=== PATIENT | female | born 1950 | race Caucasian/White ===

== ENCOUNTER 2017-04-28 19:21 | Emergency (ER) | payer MEDICARE, OTHER ==
[~2017-04-28] VITALS: Ht 160 cm; Wt 65.8 kg
[~2017-04-28 19:21] MED LIST: ACET500 PO; ALBIPROI INH; ALBU.083IS IH; ALBU3IS INH; ALBU90OI INH; ALBU90OI6 INH; AMOCLA875 PO; ASPI81CH PO; ASPI81EC; ASPI81EC PO; ATOR10; AZIT250 PO; Acetaminophen325 M1 PO; Augmentin 875-1 EACH PO; BUDE6HFA INH; BUME1 PO; BUME2 PO; BUPR100; BUPR150T2; CIPR500 PO; CRUTCH3 USE; Coumadin5 MG PO; DIGO.125 PO; DILT180 PO; DIPATR PO; DOCCAL240 PO; DOCU100; DOXY100 PO; DULO60 PO; Diflucan100 MG PO; FAMO40 PO; FERR325 PO; FLONASE ALLERG9.9 ML; FURO20; FURO20 PO; FURO40 PO; FURO80 PO; Flagyl500 MG PO; GABA300 PO; GUAI200 PO; HYDACE10B PO; HYDACE5; HYDACE5 PO; HYDACE5325; HYDACE5325 PO; HYDR1TAB94 PO; Humulin N100 UNIT/1 SC; INS70/30PN; INSDET100; INSDET100 SC; INSDET100 SQ; INSUASPI; INSUASPI SC; K-Dur20 MEQ PO; LACT10SY PO; LAVAP17G PO; LEVFLO500 PO; LIDO5TP TOP; LIPITOR; LISHYD2025; LISI5 PO; LOSA25 PO; LOSA50 PO; LOVA20; Lopressor 25 mg25 MG PO; MAGCHL64ER PO; MAGOXI400 PO; METF500 PO; METF500C PO; METO2.5 PO; METO50 PO; METO50ER PO; METR500 PO; NITR.4SL SL; NYST100P TOP; NYST100TC TOP; NYST100TO TOP; Neurontin 100100 MG PO; Novolog Fl100 UNIT/1 SC; Nystatin15 GM TP; OLME20; OXYACE10; OXYACE5T PO; OXYC5 PO; PANT40 PO; POTCHL10ER PO; POTCHL20ER PO; PRED10 PO; PRED20 PO; PROCODE120 PO; PRODEXEL PO; PROM25 PO; ROSI4; RXHYDACE PO; SENNA; SIMV10 PO; SPIR25 PO; Simvastatin20 MG PO; TAMS.4ER PO; TRAM50 PO; Ventolin Soln3 ML INH; Ventolin/Prove6.7 GM INH; WARF5 PO; WARF7.5 PO; XARELTO15 MG PO; XARELTO20 MG PO; Zofran Odt4 MG PO; [UNRECOGNIZED DRUG - OTHER]
[2017-04-28 19:40] LABS: Source, Urine Clean Catch
[2017-04-28 19:49] LABS: Appearance, Urine Turbid (Clear); Bilirubin, Urine Neg (Neg); Blood, Urine 3+ (Neg); Color, Urine Yellow (P-Yellow); Glucose Qualitative, Urine 2+ (Neg); Ketones, Urine Neg (Neg); Leukocyte Esterase, Urine 2+ (Neg); Nitrite, Urine Neg (Neg); Protein, Urine 3+ (Neg); Specific Gravity, Urine 1.015 (1.003-1.022); Urobilinogen, Urine NORM (Normal)
[2017-04-28 20:10] LABS: BASOPHILS ABSOLUTE AUTO 0.02 K/mm3 (0.00-0.23); BASOPHILS PERCENT AUTO 0 % (0-2); EOSINOPHILS ABSOLUTE AUTO 0.01 K/mm3 (0.00-0.68); EOSINOPHILS PERCENT AUTO 0 % (0-6); Hematocrit 43.4 % (33.0-51.0); Hemoglobin 14.9 g/dL (11.5-16.0); IMMATURE GRAN ABSOLUTE AUTO 0.01 K/mm3 (0.00-0.10); IMMATURE GRAN PERCENT AUTO 0 % (0-1); LYMPHOCYTES ABSOLUTE AUTO 0.41 K/mm3 (0.84-5.20); LYMPHOCYTES PERCENT AUTO 9 % (21-46); MONOCYTES ABSOLUTE AUTO 0.51 K/mm3 (0.16-1.47); MONOCYTES PERCENT AUTO 11 % (4-13); Mean Corpuscular HGB 29.9 pg (26.0-34.0); Mean Corpuscular HGB Conc 34.3 g/dL (31.5-36.5); Mean Corpuscular Volume 87 fL (80-100); Mean Platelet Volume 9.5 fL (9.1-12.4); NEUTROPHILS ABSOLUTE AUTO 3.78 K/mm3 (1.96-9.15); NEUTROPHILS PERCENT AUTO 80 % (41-73); Platelet Count 183 K/mm3 (150-400); RDW Coefficient Variation 14.1 % (11.7-14.2); RDW Standard Deviation 44.8 fL (35.1-46.3); Red Blood Cell Count 4.99 M/mm3 (3.80-5.20); White Blood Cell Count 4.74 K/mm3 (4.00-11.30)
[2017-04-28 20:16] LABS: Bacteria Many /hpf; Squamous Epithelial Cells Mod /hpf (Few)
[2017-04-28 20:29] LABS: Troponin I 0.117 ng/mL (0.000-0.040)
[2017-04-28 20:32] LABS: Albumin, Blood 3.4 g/dL (3.4-5.0); Albumin/Globulin Ratio 0.9 (0.8-1.8); Bilirubin, Total 0.7 mg/dL (0.1-1.0); Bun/Creatinine Ratio 16.2 (12.0-20.0); Calcium, Blood 9.1 mg/dL (8.5-10.1); Creatinine, Blood 1.11 mg/dL (0.40-1.00); Globulin, Blood 3.9 g/dL (2.2-4.0); Potassium, Blood 4.2 mmol/L (3.5-5.5); Total Protein, Blood 7.3 g/dL (6.4-8.2)
[2017-04-28] MEDS ORDERED: CEPH500 PO (23:09)
== END 2017-04-28 23:45 | disposition home or self-care (01) ==
LOC: ER 19:21
PROVIDERS: Emergency Medicine
DX: N39.0 Urinary tract infection, site not specified (principal); E11.65 Type 2 diabetes mellitus with hyperglycemia; J45.909 Unspecified asthma, uncomplicated; I11.0 Hypertensive heart disease with heart failure; I50.9 Heart failure, unspecified; E11.40 Type 2 diabetes mellitus with diabetic neuropathy, unspecified; I48.91 Unspecified atrial fibrillation; Z88.5 Allergy status to narcotic agent; Z88.8 Allergy status to other drugs, medicaments and biological substances; Z91.013 Allergy to seafood; Z88.6 Allergy status to analgesic agent; Z91.040 Latex allergy status; Z79.899 Other long term (current) drug therapy; Z79.4 Long term (current) use of insulin; Z79.2 Long term (current) use of antibiotics; Z87.891 Personal history of nicotine dependence
CPT/HCPCS: 80053; 81001; 82947; 84484; 85025; 87077; 87086; 87186; 93005; 93010; 96361; 96365; 99284; J0696; J1815; J1817; J7030

== ENCOUNTER 2018-01-15 14:53 | Emergency (ER) | payer MEDICARE, OTHER ==
[~2018-01-15] VITALS: Ht 160 cm; Wt 81.7 kg
[~2018-01-15 14:53] MED LIST changes: +CEPH500 PO
[2018-01-15 15:41] LABS: BASOPHILS ABSOLUTE AUTO 0.06 K/mm3 (0.00-0.23); BASOPHILS PERCENT AUTO 1 % (0-2); EOSINOPHILS ABSOLUTE AUTO 0.21 K/mm3 (0.00-0.68); EOSINOPHILS PERCENT AUTO 3 % (0-6); Hematocrit 44.2 % (33.0-51.0); Hemoglobin 14.4 g/dL (11.5-16.0); IMMATURE GRAN ABSOLUTE AUTO 0.02 K/mm3 (0.00-0.10); IMMATURE GRAN PERCENT AUTO 0 % (0-1); LYMPHOCYTES ABSOLUTE AUTO 0.74 K/mm3 (0.84-5.20); LYMPHOCYTES PERCENT AUTO 11 % (21-46); MONOCYTES ABSOLUTE AUTO 0.38 K/mm3 (0.16-1.47); MONOCYTES PERCENT AUTO 6 % (4-13); Mean Corpuscular HGB 29.1 pg (26.0-34.0); Mean Corpuscular HGB Conc 32.6 g/dL (31.5-36.5); Mean Corpuscular Volume 89 fL (80-100); NEUTROPHILS ABSOLUTE AUTO 5.33 K/mm3 (1.96-9.15); NEUTROPHILS PERCENT AUTO 79 % (41-73); Platelet Count 284 K/mm3 (150-400); RDW Coefficient Variation 13.9 % (11.7-14.2); RDW Standard Deviation 44.9 fL (35.1-46.3); Red Blood Cell Count 4.95 M/mm3 (3.80-5.20); White Blood Cell Count 6.74 K/mm3 (4.00-11.30)
[2018-01-15 16:02] LABS: Albumin, Blood 3.5 g/dL (3.4-5.0); Albumin/Globulin Ratio 0.8 (0.8-1.8); Bilirubin, Total 0.4 mg/dL (0.1-1.0); Creatinine, Blood 1.39 mg/dL (0.40-1.00); Globulin, Blood 4.4 g/dL (2.2-4.0); Potassium, Blood 4.6 mmol/L (3.5-5.5); Total Protein, Blood 7.9 g/dL (6.4-8.2)
[2018-01-15] MEDS ORDERED: Augmentin 875-1 EACH PO (19:12)
[2018-01-15] MEDS ORDERED: Norco 5-325 Ta1 EACH PO (19:12)
== END 2018-01-15 20:13 | disposition home or self-care (01) ==
LOC: ER 14:53
PROVIDERS: Emergency Medicine
DX: S92.511A Displaced fracture of proximal phalanx of right lesser toe(s), initial encounter for closed fracture (principal); E11.65 Type 2 diabetes mellitus with hyperglycemia; M81.0 Age-related osteoporosis without current pathological fracture; J45.909 Unspecified asthma, uncomplicated; E11.40 Type 2 diabetes mellitus with diabetic neuropathy, unspecified; I11.0 Hypertensive heart disease with heart failure; I50.9 Heart failure, unspecified; I48.91 Unspecified atrial fibrillation; Z88.6 Allergy status to analgesic agent; Z88.5 Allergy status to narcotic agent; Z91.013 Allergy to seafood; Z91.040 Latex allergy status; Z88.8 Allergy status to other drugs, medicaments and biological substances; Z79.899 Other long term (current) drug therapy; Z79.51 Long term (current) use of inhaled steroids; Z79.4 Long term (current) use of insulin
CPT/HCPCS: 36415; 73630; 80053; 80162; 85025; 85651; 86140; 96365; 99283-25; J0295

== ENCOUNTER 2018-07-24 15:35 | Emergency (ER) | payer MEDICARE, OTHER ==
[~2018-07-24 15:35] MED LIST changes: +Norco 5-325 Ta1 EACH PO
== END 2018-07-24 15:39 ==
LOC: ER 15:35
DX: I46.9 Cardiac arrest, cause unspecified (principal); J45.909 Unspecified asthma, uncomplicated; E11.40 Type 2 diabetes mellitus with diabetic neuropathy, unspecified; I11.0 Hypertensive heart disease with heart failure; I50.9 Heart failure, unspecified; I48.91 Unspecified atrial fibrillation; Z88.6 Allergy status to analgesic agent; Z91.040 Latex allergy status; Z91.013 Allergy to seafood; Z88.8 Allergy status to other drugs, medicaments and biological substances; Z79.899 Other long term (current) drug therapy; Z79.84 Long term (current) use of oral hypoglycemic drugs; Z87.891 Personal history of nicotine dependence; Z88.5 Allergy status to narcotic agent
CPT/HCPCS: 31720; 99285